=== PATIENT | male | born 1995 | race Caucasian/White ===

== ENCOUNTER 2016-12-14 17:43 | Emergency (ER) | payer OTHER ==
[~2016-12-14] VITALS: Ht 188 cm; Wt 65.9 kg
[2016-12-14 17:44] VITALS: BP 140/89; PULSE 118; RESP 16; TEMP 98.7; O2SAT 97
[2016-12-14] MEDS ORDERED: ZOFR4TAB PO (18:09)
--- NOTE | 2016-12-14 18:11 | PD ---
HPI Chief Complaint: Cold / Flu Symptoms Time Seen by Provider: 18:10 Travel History International Travel<30 days: No Contact w/Intl Traveler<30days: No Traveled to known affect area: No History of Present Illness HPI 21-year-old male presents to the emergency department for evaluation of sore throat, nasal congestion, runny nose for 3 days. States that over the past 2 days his also developed some itchy watery eyes and a mild cough. States today he has also had some nausea. He denies any fever, chills, vomiting, diarrhea, constipation, abdominal pain, ear pain, lightheadedness or dizziness. States he has been taking [id number] Shira D, naproxen and emergen-C. Denies any recent travel or sick contacts. No other complaints. PFSH Past Medical History Medical History: Denies Significant Hx Social History Alcohol Use: No Tobacco Use: No Allergies-Medications Reported Meds & Prescriptions Reported Meds & Active Scripts Active Zofran (Ondansetron HCl) 4 Mg Tab 4 Mg PO Q6HR PRN Review of Systems Except as stated in HPI: all other systems reviewed are Neg Physical Exam Narrative GENERAL: Well-nourished and well-developed pleasant male patient in no acute distress who is nontoxic appearing. SKIN: Warm and dry. HEAD: Normocephalic and atraumatic. EYES: No injection, drainage, or hyphema noted. PERRLA. EOMI. ENT: No nasal drainage noted. Oropharynx is clear and the TMs are normal with good landmarks. NECK: Supple and the trachea is midline. No lymphadenopathy is noted throughout the cervical chains. CARDIOVASCULAR: Regular rate and rhythm. RESPIRATORY: Breath sounds are equal bilaterally with no accessory muscle use, wheezing, rhonchi, or crackles. GASTROINTESTINAL: Abdomen is soft, non-tender, and nondistended. MUSCULOSKELETAL: No obvious deformities, swelling, cyanosis, or ecchymosis is present throughout the upper and lower extremities. NEUROLOGICAL: Awake, alert, and oriented. Normal speech and gait. Cranial nerves are grossly intact. Data Data Last Documented VS Vital Signs Date Time Temp Pulse Resp B/P Pulse Ox O2 Delivery O2 Flow Rate FiO2 12/14/16 17:44 98.7 118 16 140/89 97 MDM Medical Decision Making Medical Screen Exam Complete: Yes Emergency Medical Condition: Yes Differential Diagnosis Viral illness versus URI versus influenza Narrative Course 21-year-old male presents to the emergency department for evaluation of runny nose, nasal congestion, itchy watery eyes and cough for 3 days. Patient is afebrile. He is a little tachycardic but otherwise vital signs are stable. He appears well overall. He likely has influenza however is outside of the treatment for Tamiflu. Discussed supportive care with the patient. Advised follow-up with his PCP. Patient verbalizes understanding and agreement with treatment plan. Diagnosis Primary Impression: Viral illness Referrals: Primary Care Physician Patient Instructions: General Instructions, Viral Syndrome (ED) Additional Instructions: Take medication as prescribed. Follow-up with your Primary Care Physician. Return to the ED for any acute worsening of symptoms. Med/Other Pt SpecificInfo: Prescription(s) given Scripts Ondansetron (Zofran)4 Mg Tab4 Mg PO Q6HR PRN (NAUSEA OR VOMITING) #10 TAB Ref 0 Prov:Garett Fisher MD 12/14/16 Disposition: 01 DISCHARGE HOME Condition: Stable [place] Lomeli Dec 14, 2016 18:11
== END 2016-12-14 18:30 | disposition home or self-care (01) ==
LOC: NEPB 17:43
DX: B34.9 Viral infection, unspecified (principal)
CPT/HCPCS: 99283